=== PATIENT | female | born 1980 | race Caucasian/White ===

== ENCOUNTER 2018-06-25 10:08 | Day surgery (SDC) | payer OTHER ==
[~2018-06-25] VITALS: Ht 162.6 cm; Wt 65.0 kg
[2018-06-25] MEDS ORDERED: LIDOCAINE 1%, 20ML ONE (10:56)
== END 2018-06-25 13:32 | disposition home or self-care (01) ==
LOC: CACL 10:08
PROVIDERS: ATTEND Internal Medicine Cardiovascular Disease
DX: R55 Syncope and collapse (principal); I49.3 Ventricular premature depolarization; Z88.1 Allergy status to other antibiotic agents; Z88.0 Allergy status to penicillin; Z88.8 Allergy status to other drugs, medicaments and biological substances
CPT/HCPCS: 33285; C1764

== ENCOUNTER 2020-05-15 11:24 | Day surgery (SDC) | payer OTHER ==
[~2020-05-15] VITALS: Ht 162.6 cm; Wt 66.8 kg
[2020-05-15 12:23] VITALS: BP 135/64
[2020-05-15] MEDS ORDERED: THYR90TA PO (12:32)
[2020-05-15] MEDS ORDERED: MIDAZOLAM 1 MG/ML, 2ML ONE (12:40)
[2020-05-15] MEDS ORDERED: FENTANYL PF 100 MCG/2ML ONE (12:40)
[2020-05-15] MEDS ORDERED: LIDOCAINE 2%, 20ML ONE (12:41)
[2020-05-15] MEDS ORDERED: MIDAZOLAM 1 MG/ML, 5ML ONE (13:27)
== END 2020-05-15 15:02 | disposition home or self-care (01) ==
LOC: CACL 11:24
PROVIDERS: ATTEND Internal Medicine Cardiovascular Disease
DX: Z45.09 Encounter for adjustment and management of other cardiac device (principal); I49.3 Ventricular premature depolarization; E03.9 Hypothyroidism, unspecified; Z79.890 Hormone replacement therapy; Z79.899 Other long term (current) drug therapy; Z88.0 Allergy status to penicillin; Z88.1 Allergy status to other antibiotic agents; Z88.2 Allergy status to sulfonamides
CPT/HCPCS: 33286; J2250; J3010